=== PATIENT | male | born 1990 | race African-American/Black ===

== ENCOUNTER 2021-11-13 20:02 | Emergency (ER) | payer BC, SELFPAY ==
[2021-11-13] MEDS ORDERED: Ibuprofen 800 MG TAB ONE (20:32)
== END 2021-11-13 20:30 | disposition home or self-care (01) ==
LOC: NAV ERS 20:02
DX: F43.0 Acute stress reaction (principal); F17.210 Nicotine dependence, cigarettes, uncomplicated
CPT/HCPCS: 93005

== ENCOUNTER 2021-11-16 09:35 | Emergency (ER) | payer BC ==
[2021-11-16 10:27] LABS: Anion Gap 17 mmol/L (10-20); BUN (Urea Nitrogen) 11 mg/dL (8.9-20.6); Calc. Creatinine Clearance 0 mL/min (70-130); Calcium 8.9 mg/dL (7.8-10.44); Carbon Dioxide 22 mmol/L (22-29); Chloride 103 mmol/L (98-107); Estimated GFR 85; Glucose 94 mg/dL (70-105); Potassium 4.5 mmol/L (3.5-5.1); Sodium 137 mmol/L (136-145)
[2021-11-16 10:54] LABS: #Basophils 0.1 thou/uL (0.0-0.2); #Eosinphils 0.2 thou/uL (0.0-0.7); #Lymphocytes 2.8 thou/uL (1.20-3.40); #Monocytes 0.7 thou/uL (0.11-0.59); #Neutrophils 2.7 thou/uL (1.40-6.50); %Eosinophils 2.5 % (0.0-10.0); %Lymphocytes 43.3 % (21.0-51.0); %Monocytes 10.7 % (0.0-10.0); %Neutrophils 41.5 % (42.0-75.0); Hemoglobin 15.8 g/dL (14.0-18.0); Mean Corpuscular HGB CONC 31.3 g/dL (32.0-36.0); Mean Corpuscular Hemoglobin 28.1 pg (27.0-31.0); Mean Corpuscular Volume 89.6 fL (78.0-98.0); Mean Platelet Volume 8.9 fL (7.4-10.4); Platelet Count 258 thou/uL (130-400); RBC Distribution Width 12.1 % (11.5-14.5); Red Blood Cell (RBC) Count 5.64 mill/uL (4.70-6.10); White Blood Cell (WBC) Count 6.5 thou/uL (4.8-10.8)
== END 2021-11-16 10:55 | disposition home or self-care (01) ==
LOC: NAV ERS 09:35
DX: R07.89 Other chest pain (principal); F43.20 Adjustment disorder, unspecified
CPT/HCPCS: 71045; 80048; 84484; 85025; 93005